=== PATIENT | female | born 1970 | race Caucasian/White ===

== ENCOUNTER 2021-04-30 21:50 | Emergency (ER) | payer OTHER, SELFPAY ==
[~2021-04-30] VITALS: Ht 165.1 cm; Wt 104.3 kg
[2021-04-30 22:00] VITALS: BP_SYST 156
--- NOTE | 2021-04-30 22:35 | NUR ---
Patient to ER bed H1 to gown for evaluation. Side rails up.
--- NOTE | 2021-04-30 22:44 | NUR ---
PT ARRIVED TO ER FOR LEFT LEG BRUISE AND PAIN. PT STATES 3/10 PAIN. HX OF LIPOMA 3 YEARS AGO AND IS SCARED IT MIGHT BE ANOTHER ONE. PT IS ABLE TO WALK BUT IS UNCOMFRTOABLE AND FEELS PRESSURE. PTS LEG IS SLIGHTLY EDEMETOUS AND LOOKS BRUISED. A&OX4
--- NOTE | 2021-04-30 23:00 | NUR ---
ER at bedside examining patient.
--- NOTE | 2021-05-01 | NUR ---
Patient transported to radiology via WHEELCHAIR, accompanied by TECH.
[2021-05-01 00:25] LABS: BASOPHILS # (AUTO) 0.2 K/uL (0.0-0.2); BASOPHILS % (AUTO) 2.8 % (0.0-2.0); EOSINOPHILS # (AUTO) 0.5 K/uL (0.0-0.4); EOSINOPHILS % (AUTO) 6.3 % (0.0-4.0); HEMOGLOBIN 14.9 g/dL (12.0-16.0); LYMPHOCYTES # (AUTO) 2.4 K/uL (1.0-5.5); LYMPHOCYTES % (AUTO) 31.4 % (20.5-51.5); MEAN CORPUSCULAR HEMOGLOBIN 29 pg (27-31); MEAN CORPUSCULAR HGB CONC 35 % (32-36); MEAN CORPUSCULAR VOLUME 83 fL (79.0-98.0); MONOCYTES # (AUTO) 0.6 K/uL (0.0-1.0); MONOCYTES % (AUTO) 7.2 % (1.7-9.3); NEUTROPHILS # (AUTO) 4.1 K/uL (1.8-7.7); NEUTROPHILS % (AUTO) 52.3 % (40.0-70.0); PLATELET COUNT (AUTO) 247 K/uL (130-430); RED CELL DISTRIBUTION WIDTH 13.9 % (9.0-15.0); WHITE BLOOD COUNT (AUTO) 7.8 K/uL (4.8-10.8)
[2021-05-01 00:42] LABS: CALCIUM 9.3 mg/dL (8.4-11.0); CREATININE 0.53 mg/dL (0.55-1.30); INR 0.9 (0.8-1.2); POTASSIUM 3.3 mmol/L (3.5-5.1); PROTHROMBIN TIME 9.7 SECS (9.5-12.5)
[2021-05-01 01:02] LABS: ALBUMIN 3.9 g/dL (3.4-4.8); TOTAL BILIRUBIN 0.3 mg/dL (0.0-1.0)
[2021-05-01 01:40] VITALS: BP_SYST 156
--- NOTE | 2021-05-01 01:40 | NUR ---
Patient given written and verbal discharge instructions and verbalizes understanding. ER MD discussed with patient the results and treatment provided. Patient in stable condition. ID arm band removed. Patient educated on pain management and to follow up with PMD. Pain Scale 0/10 Opportunity for questions provided and answered.
[2021-05-01 01:41] LABS: BILIRUBIN,URINE NEGATIVE (NEGATIVE); CLARITY/URINE CLEAR (CLEAR); COLOR,URINE YELLOW (YELLOW); GLUCOSE,URINE NEGATIVE (NEGATIVE); KETONES,URINE NEGATIVE (NEGATIVE); LEUKOCYTE ESTERASE ,URINE NEGATIVE (NEGATIVE); NITRITE, URINE NEGATIVE (NEGATIVE); PH,URINE 6.5 (5.0-8.0); PROTEIN URINE NEGATIVE (NEGATIVE); UROBILINOGEN,URINE 0.2 (0.2-1.0)
[2021-05-01 01:46] LABS: BLOOD, URINE TRACE (NEGATIVE)
[2021-05-01 03:04] LABS: BACTERIA,URINE RARE /HPF (None Seen); MUCUS,URINE None Seen /LPF (None Seen); WBC,URINE 0-3 /HPF (0-3)
== END 2021-05-01 01:40 | disposition home or self-care (01) ==
LOC: SED 21:50
DX: R22.42 Localized swelling, mass and lump, left lower limb (principal); M79.662 Pain in left lower leg; I10 Essential (primary) hypertension; Z79.82 Long term (current) use of aspirin; Z79.899 Other long term (current) drug therapy
CPT/HCPCS: 36415; 80053; 81000; 85025; 85379; 85610-TC; 93971; 99284

== ENCOUNTER 2021-05-24 20:19 | Emergency (ER) | payer OTHER, SELFPAY ==
[~2021-05-24] VITALS: Ht 165.1 cm; Wt 101.2 kg
[2021-05-24 20:29] VITALS: BP_SYST 125
[2021-05-24 21:56] LABS: HEMATOCRIT 41.4 % (36-48); MEAN CORPUSCULAR HEMOGLOBIN 28 pg (27-31); MONOCYTES # (AUTO) 0.4 K/uL (0.0-1.0); RED BLOOD CELL COUNT(AUTO) 5.04 MIL/uL (4.2-6.2); RED CELL DISTRIBUTION WIDTH 13.9 % (9.0-15.0)
[2021-05-24 22:00] LABS: BASOPHILS % (AUTO) 0.4 % (0.0-2.0); EOSINOPHILS # (AUTO) 0.5 K/uL (0.0-0.4); EOSINOPHILS % (AUTO) 5.9 % (0.0-4.0); HEMOGLOBIN 14.1 g/dL (12.0-16.0); LYMPHOCYTES # (AUTO) 2.7 K/uL (1.0-5.5); LYMPHOCYTES % (AUTO) 31.8 % (20.5-51.5); MEAN CORPUSCULAR HGB CONC 34 % (32-36); MEAN CORPUSCULAR VOLUME 82 fL (79.0-98.0); MONOCYTES % (AUTO) 4.7 % (1.7-9.3); NEUTROPHILS # (AUTO) 4.8 K/uL (1.8-7.7); NEUTROPHILS % (AUTO) 57.2 % (40.0-70.0); PLATELET COUNT (AUTO) 254 K/uL (130-430); WHITE BLOOD COUNT (AUTO) 8.4 K/uL (4.8-10.8)
[2021-05-24 22:10] LABS: CALCIUM 9.1 mg/dL (8.4-11.0); CREATININE 0.61 mg/dL (0.55-1.30); POTASSIUM 3.7 mmol/L (3.5-5.1)
[2021-05-24 22:20] LABS: ALBUMIN 3.7 g/dL (3.4-4.8); TOTAL BILIRUBIN 0.3 mg/dL (0.0-1.0)
[2021-05-25] MEDS ORDERED: POTA-197 PO (02:23)
[2021-05-25] MEDS ORDERED: CLON-433 PO (02:23)
[2021-05-25 02:39] VITALS: BP_SYST 154
== END 2021-05-25 02:39 | disposition home or self-care (01) ==
LOC: SED 20:19
DX: M62.838 Other muscle spasm (principal); I51.7 Cardiomegaly; I10 Essential (primary) hypertension; Z88.2 Allergy status to sulfonamides
CPT/HCPCS: 36415; 71045; 80053; 84484; 85025; 93005; 99285

== ENCOUNTER 2021-06-09 12:31 | Emergency (ER) | payer OTHER, SELFPAY ==
[~2021-06-09] VITALS: Ht 165.1 cm; Wt 103.9 kg
[~2021-06-09 12:31] MED LIST: CLON-433 PO; POTA-197 PO
[2021-06-09 13:48] VITALS: BP_SYST 157
--- NOTE | 2021-06-09 13:52 | NUR ---
Patient triaged and placed in waiting room. VSS and patient appears in no acute distress at this time. Accompanied by self, awaiting available bed, and MD notified of need for MSE.
--- NOTE | 2021-06-09 14:00 | NUR ---
Patient to ER TRIAGE to gown for evaluation. Side rails up.
--- NOTE | 2021-06-09 14:15 | NUR ---
ER at bedside examining patient.
[2021-06-09 14:48] VITALS: BP_SYST 157
--- NOTE | 2021-06-09 14:48 | NUR ---
Patient given written and verbal discharge instructions and verbalizes understanding. ER MD discussed with patient the results and treatment provided. Patient in stable condition. ID arm band removed. no Rx of given. Patient educated on pain management and to follow up with PMD. Pain Scale 0 Opportunity for questions provided and answered. Medication side effect fact sheet provided.
== END 2021-06-09 14:48 | disposition home or self-care (01) ==
LOC: SED 12:31
DX: L60.0 Ingrowing nail (principal); I10 Essential (primary) hypertension; Z88.5 Allergy status to narcotic agent
CPT/HCPCS: 99281; 99282